=== PATIENT | male | born 2000 | race Caucasian/White ===

== ENCOUNTER 2018-02-02 19:15 | Emergency (ER) | payer OTHER ==
--- NOTE | 2018-02-02 19:49 | UC ---
Throat Pain/Nasal Reese HPI - HPI Summary HPI Summary: 17 [address] male [address] [facility] SORE THROAT 2 DAYS AGO, COUGH. He is concerned for strep . Also with some cough and wheezing at times. No SOB. No smoking. No asthma in the past. [ End ] - History of Current Complaint Chief Complaint: UCGeneralIllness Stated Complaint: ST,COUGH,RESP Time Seen by Provider: 02/02/18 19:47 Hx Obtained From: Patient Onset/Duration: Sudden Onset Pain Intensity: 7 Cough: Nonproductive - Allergies/Home Medications Allergies/Adverse Reactions: Allergies Allergy/AdvReac Type Severity Reaction Status Date / Time No Known Allergies Allergy Verified 02/02/18 19:34 PMH/Surg Hx/FS Hx/Imm Hx Previously Healthy: Yes - Surgical History Surgical History: None Surgery Procedure, Year, and Place: eaustation tubes age 2, adnoidectomy - Family History Known Family History: Positive: Respiratory Disease - mom : asthma - Social History Occupation: Employed Part-time Lives: Alone Alcohol Use: Rare Substance Use Type: None Smoking Status (MU): Never Smoked Tobacco - Immunization History Vaccination Up to Date: Yes Review of Systems Constitutional: Fatigue ENT: Sore Throat Respiratory: Cough Is Patient Immunocompromised?: No All Other Systems Reviewed And Are Negative: Yes Physical Exam Triage Information Reviewed: Yes Appearance: Well-Appearing, No Pain Distress, Well-Nourished Vital Signs: Initial Vital Signs Temp 99.9 F 02/02/18 19:35 Pulse 89 02/02/18 19:35 Resp 16 02/02/18 19:35 BP 124/64 02/02/18 19:35 Pulse Ox 95 02/02/18 19:35 Vital Signs Reviewed: Yes Eye Exam: Normal ENT Exam: Normal Neck exam: Normal Neck: Positive: 1 Respiratory Exam: Normal Respiratory: Positive: Wheezing - mild expiratory LLL Cardiovascular Exam: Normal Musculoskeletal Exam: Normal Neurological Exam: Normal Psychological Exam: Normal Skin Exam: Normal Throat Pain/Nasal Course/Dx - Course Course Of Treatment: neg strep. offer albuterol for cough / wheeze and RTO / go to PCP for concerns - Differential Dx/Diagnosis Differential Diagnosis/HQI/PQRI: Pharyngitis, Sinusitis, Tonsillitis, URI Provider Diagnoses: URI Discharge - Sign-Out/Discharge Documenting (check all that apply): Discharge - Discharge Plan Condition: Good Disposition: HOME Prescriptions: Albuterol HFA INHALER* [Ventolin HFA Inhaler*] 1 - 2 puff INH Q6H PRN #1 mdi PRN Reason: Shortness Of Breath Patient Education Materials: Upper Respiratory Infection (ED) Referrals: Rui Pacheco MD [Primary Care Provider] - 4 Days Additional Instructions: Your strep testing was negative - Billing Disposition and Condition Condition: GOOD Disposition: HOME
== END 2018-02-02 20:18 | disposition home or self-care (01) ==
LOC: UCCORT 19:15
DX: J06.9 Acute upper respiratory infection, unspecified (principal)
CPT/HCPCS: 87651; 99202; G0463

== ENCOUNTER 2018-12-11 10:07 | Emergency (ER) | payer SELFPAY ==
[2018-12-11 12:53] VITALS: BP 139/79
--- NOTE | 2018-12-11 13:03 | UC ---
UC General HPI - HPI Summary HPI Summary: 18 yo male presents requesting STD testing. He tells me that his long-term girlfriend has had a rash on her abdomen for a couple of week. Recently his gf saw a transportation planner and was told that it looks like a syphilis rash. She underwent testing and is supposed to have results back this week. Pt is now concerned that he may have an STD. He has no symptoms. Denies fever, night sweats, rash, lesions, ulcers, penile drainage, testicular pain, or dysuria. - History of Current Complaint Chief Complaint: UCGeneralIllness Stated Complaint: PERSONAL Time Seen by Provider: 12/11/18 12:55 Hx Obtained From: Patient Current Severity: None Pain Intensity: 0 - Allergy/Home Medications Allergies/Adverse Reactions: Allergies Allergy/AdvReac Type Severity Reaction Status Date / Time No Known Allergies Allergy Verified 12/11/18 12:49 PMH/Surg Hx/FS Hx/Imm Hx - Additional Past Medical History Additional PMH: None - Surgical History Surgical History: Yes Surgery Procedure, Year, and Place: eaustation tubes age 2, adnoidectomy - Family History Known Family History: Positive: Respiratory Disease - mom : asthma - Social History Occupation: Employed Full-time Lives: With Family Alcohol Use: Rare Substance Use Type: None Smoking Status (MU): Never Smoked Tobacco - Immunization History Vaccination Up to Date: Yes Review of Systems All Other Systems Reviewed And Are Negative: Yes Constitutional: Positive: Negative Skin: Positive: Negative Respiratory: Positive: Negative Cardiovascular: Positive: Negative Gastrointestinal: Positive: Negative Genitourinary: Positive: Negative Neurovascular: Positive: Negative Neurological: Positive: Negative Psychological: Positive: Negative Physical Exam - Summary Physical Exam Summary: GENERAL: NAD. WDWN. No pain distress. SKIN: No streaking, bleeding, or drainage. NECK: Supple. Nontender. No lymphadenopathy. CHEST: No accessory muscle use. Breathing comfortably and in no distress. CV: Pulses intact. Cap refill <2seconds NEURO: Alert. PSYCH: Age appropriate behavior. Triage Information Reviewed: Yes Vital Signs: Initial Vital Signs Temp 98.4 F 12/11/18 12:50 Pulse 83 12/11/18 12:50 Resp 15 12/11/18 12:50 BP 139/79 12/11/18 12:50 Pulse Ox 97 12/11/18 12:50 Vital Signs Reviewed: Yes Course/Dx - Course Course Of Treatment: Declined genital exam as he has no symptoms. Will test for GC/C, RPR, hepatitis, and HIV today and f/u with pt with results. - Diagnoses Provider Diagnosis: High risk sexual behavior Discharge - Sign-Out/Discharge Documenting (check all that apply): Patient Departure All imaging exams completed and their final reports reviewed: No Studies - Discharge Plan Condition: Stable Disposition: HOME Patient Education Materials: Sexually Transmitted Diseases (ED), Syphilis (ED) Referrals: Wesley Conner MD [Primary Care Provider] - Additional Instructions: If you develop a fever, shortness of breath, chest pain, new or worsening symptoms - please call your PCP or go to the ED. Your blood pressure was mildly elevated at todays visit. Please see your primary provider within 4 weeks for recheck and re-evaluation. - Billing Disposition and Condition Condition: STABLE Disposition: Home
[2018-12-12 12:26] LABS: Neisseria gonorrhoeae (GC) RNA Negative (Negative)
[2018-12-13 18:08] LABS: Hepatitis B Surface Antigen Nonreactive (Nonreactive)
[2018-12-13 18:25] LABS: Hepatitis C Antibody Nonreactive (Nonreactive)
== END 2018-12-11 13:26 | disposition home or self-care (01) ==
LOC: UCCORT 10:07
DX: Z72.51 High risk heterosexual behavior (principal)
CPT/HCPCS: 36415; 80074; 86592; 86703; 87491; 87591; 99211; G0463